=== PATIENT | male | born 2000 | race Caucasian/White ===

== ENCOUNTER 2025-01-03 14:13 | Emergency (ER) | payer OTHER, SELFPAY ==
--- NOTE | 2025-01-03 14:24 | ED_ITS ---
HPI - Headache General Chief Complaint: Headache Stated Complaint: shoulder pain/headaches Time Seen by Provider: 01/03/25 14:24 Source: patient Mode of arrival: ambulatory Limitations: no limitations History of Present Illness HPI Narrative: Travon is a 24-year-old male patient presenting to the clinic today with complaints of headache and shoulder pain. 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 States he switch to a backpack and started to have pain on the right side as well. Also reporting some muscle soreness to the posterior shoulders. Headache started over the last 1-2 days and felt some soreness in his bilateral jaws also radiating up into his ear. Denies any chest pain, shortness of breath, dizziness, or visual changes. History of elevated blood pressure without diagnosis of hypertension. BP was 166/102 in the clinic today. Has not been able to follow-up with his primary care doctor to have his blood pressure evaluated.Rates shoulder pain 3/10 and headache 5/10. Took tylenol for his symptoms. Related Data Allergies Allergy/AdvReac Type Severity Reaction Status Date / Time No Known Allergies Allergy Verified 01/03/25 14:26 Review of Systems Review of Systems: Pertinent positives per HPI. Patient denies any fever, chills, rash, visual changes, dizziness, cough, runny nose, sore throat, shortness of breath, chest pain, palpitations, nausea, vomiting, diarrhea, constipation, abdominal pain, or any urinary issues. PMFSH Comments At the time of my signature, I reviewed and agree with the nursing past medical, surgical, social, and family history. There is no relevant family history pertinent to the patient complaint. Exam Narrative: General: Well-developed, obese, in no apparent distress Head: Normocephalic, atraumatic Eyes: Pupils equally round and reactive to light bilaterally, EOM intact, sclera and conjunctive clear, no discharge, lids normal Ears: TMs intact and clear, ear canals clear, no drainage, grossly hearing normal. Nose: Nares patent, no discharge, no inflammation, no sinus tenderness. Mouth: Oropharynx without lesions or masses, good dentition, MMM. Tongue midline, even rise and fall of uvula Neck: Supple, trachea midline, no enlargement of anterior or posterior cervical nodes, no thyroid masses or goiter palpable. Cardio: Regular rate and rhythm, s1 and s2 normal, no murmur appreciated. Resp: Clear to auscultation bilaterally anteriorly and posteriorly, no rhonchi, rales, wheezing or rubs Musculoskeletal: No deformity, tender to palpation over the anterior shoulder and posterior shoulder, negative empty can and full can testing, grossly normal range of motion, muscle strength strong and equal, peripheral pulse strong, no edema, no cyanosis, normal gait and station Neuro: Alert and oriented x4 with normal speech, no focal deficits, cranial nerves I through XII intact, muscle strength 5 out of 5, sensation intact bilaterally Course Course Emergency Course: Portions of this record may have been created with voice recognition software. Level of Care: Express Care Visit Vital Signs Vital signs: Vital Signs Temperature 36.9 C 01/03/25 14: Pulse Rate 100 01/03/25 14:26 Respiratory Rate 18 01/03/25 14:26 Blood Pressure 166/102 H 01/03/25 14:26 Pulse Oximetry 97 01/03/25 14:26 Oxygen Delivery Room Air 01/03/25 14:26 Temperature 36.9 C 01/03/25 14:26 Pulse Rate 100 01/03/25 14:26 Respiratory Rate 18 01/03/25 14:26 Blood Pressure 166/102 H 01/03/25 14:26 Pulse Oximetry 97 01/03/25 14:26 Oxygen Delivery Room Air 01/03/25 14:26 Vital signs reviewed MDM - Headache MDM Narrative Medical decision making narrative: At the time of visit patient is resting comfortably on the exam table. Patient appears to be nontoxic. Plan: Patient denies any C/P, SOB, visual changes, or dizziness. Elevated b/p in the clinic- Patient to follow up with his PCP. Headache vascular vs tension. Shoulder pain likely tension. Will send in Rx for naproxen and muscle relaxer. Supportive measures were discussed with the patient and they voiced understanding discharge instructions and agrees to treatment plan. Return precautions reviewed Differential Diagnosis Differential diagnosis: Likely migraine, tension headache, headache and other (vascular headache, muscle tension, HTN, CAD,Anxiety) Discharge Plan Discharge Clinical Impression: Elevated blood pressure reading in office without diagnosis of hypertension, Acute pain of both shoulders Acute headache Qualifiers: Headache type: tension-type Intractability: not intractable Qualified Code(s): G44.209 - Tension-type headache, unspecified, not intractable Patient Disposition: Home, Self-Care Condition: Stable Instructions: Antibiotic Form, Acute Headache (ED), Hypertension (ED), Shoulder Pain (ED) Additional Instructions: Take any prescription medication only as prescribed-naproxen and cyclobenzaprine Be mindful of sedation precautions given to you if taking a muscle relaxer. May use heat or ice to the affected area May use blue emu, lidocaine patches, or asper cream to affected area- do not apply heat or ice directly over cream- can cause burn. Follow up with your PCP in 3-5 days if symptom persist. You have an elevated blood pressure in the clinic today and I recommend follow- up with primary care physician to have this reevaluated within the next week if symptoms persist. [place] [employer] guidelines state that normal blood pressure is 120/80 or less. Anything over 120/80 is considered elevated and should be monitored. You may need to decrease you salt intake and eat a heart healthy diet to help lower you blood pressure, other treatments would include decreasing stress, weight loss, stop caffeine, and quit smoking. Your primary care provider can determine whether you need to start antihypertensive medications. Untreated high blood pressure can cause dizziness, headaches, visual changes, blindness, kidney failure, stroke, heart attack, and male impotence. Patient Language: Setswana Prescriptions: New naproxen 500 mg tablet 500 mg PO BID PRN (Reason: pain) 7 Days Qty: 14 0RF cyclobenzaprine 10 mg tablet 10 mg PO Q8H PRN (Reason: muscle spasm) 7 Days Qty: 21 0RF Follow-up/Referrals: Ambrose,Christi Junior MD [Primary Care Provider] - Time of Disposition: 14:37 Quality NIHSS Nursing Documentation ED NIHSS nursing documentation: reviewed/agree
[2025-01-03 14:26] VITALS: BP 166/102; PULSE 100; RESP 18; TEMP 36.9; O2SAT 97
--- OUTSIDE RECORDS SUMMARY | 2025-01-03 16:33 | XMS_ITS | Encounter Summary ---
Author Organization [facility] Address [facility] [place] [address] Care Team Providers Care Temple Meat Cutter Name Role Phone Christi Boggs MD Primary Care Provider + Encounter Details Date Type Department Care Team (Late st Contact Info) Description 01/03/2025 Effector Therapeuticst Message Enc [facility] Family Medicine - [place] [address] [place] [address] [phone] Christi Boggs MD [address] [place] [address] Blood Pressure Social History Tobacco Use Types Packs/Day Years Used Date Smoking Tobacco: Never Passive Smoke Exposure: Never Smokeless Tobacco: Never Alcohol Use Standard Drinks/Week Comments Not Currently 0 (1 standard drink = 0.6 oz pure alcohol) I have drank alcohol on very rare occasions. 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 Not on file Not on file documented as of this encounter Plan of Treatment Upcoming Encounters Date Type Department Care Team (Latest Contact Info) Description 01/20/2025 8:00 AM CDT Hospital Encounter [facility] [address] [place] [address] [place] [address] [address] 01/20/2025 8:00 AM CDT - 01/20/2025 10:18 AM CDT Surgery [facility] [address] [place] [address] [place] [address] [facility] [address] [place] [address] EXCISION LIPOMA Back times 5 Scheduled Procedures Name Priority Associated Diagnoses Date/Ti me EXCISION LIPOMA Multiple lipomas 01/20/2025 8:00 AM CDT EXCISION LIPOMA Multiple lipomas 01/20/2025 8:00 AM CDT EXCISION LESION ARM/LEG Multiple lipomas 01/20/2025 8:00 AM CDT EXCISION LIPOMA Multiple lipomas 01/20/2025 8:00 AM CDT documented as of this encounter Visit Diagnoses Not on filedocumented in this encounter Care Teams Temple Meat Cutter Relationship Specialty Start Date End Date Christi Boggs MD [address] [place] [address] PCP - General FAMILY PRACTICE 11/22/24 documented as of this encounter
--- OUTSIDE RECORDS SUMMARY | 2025-01-03 16:33 | XMS_ITS | Clinical Summary ---
Author Organization [facility] Address [facility] [place] [address] Care Team Providers Care Clay Press Operator Name Role Phone Christi Boggs MD Primary Care Provider + Allergies No known active allergies Medications No known medications Active Problems Problem Noted Date Diagnosed Date Multiple lipomas 12/10/2024 Encounters Date Type Department Care Team Description 01/03/2025 Webbynodet Message Enc [address] [phone] Christi Boggs MD Blood Pressure 12/13/2024 11:00 AM EDM OPERATOR Allied Health/Nurse Visit [address] [phone] Christi Boggs MD Blood Pressure (Patient presents for a blood pressure check.) 12/13/2024 Travel 12/10/2024 Prep for Procedure [address], [address] [address] Bk Brown MD 12/10/[address], [address] [place] [address] Bk Brown MD Prior Authorization (No prior authorization needed for procedure on 01/20/2025. Authorization #: [id number]) 12/09/2024 4:00 PM EDM OPERATOR Office Visit [address], [address] [place] [phone] Bk Brown MD Mass (Back, right above pelvic bone, right side, left arm) 12/09/2024 Travel 11/22/2024 7:50 AM EDM OPERATOR Office Visit [facility] Family Medicine - [place] [address] [place] [address] Christi Boggs MD New Patient (Here to get established. Having some lumps on his body. Onset- about 1 yr. ) 11/22/2024 Travel from Last 3 Months Immunizations Name Administration Dates Next Due MODERNA COVID-19 (12+) MRNA, LNP-S, PF, 100 MCG/ 0.5 ML DOSE 11/14/2021,03/27/2021,02/16/2021 Meningococcal (Menactra) 02/03/2017 Tdap (Generic) 04/02/2022 Family History Medical History Relation Comments No Known Problems Brother Hypertension Father Diabetes Maternal Grandfather Type 2 Diabetes Maternal Grandmother type 2 Alcohol Abuse Maternal Uncle Diabetes Mother type 2 Diabetes Paternal Grandmother type 2 No Known Problems Sister Relation Status Comments Brother Alive Father Alive Maternal Grandfather Maternal Grandmother Maternal Uncle Mother Alive Paternal Grandmother Sister Alive Social History Tobacco Use Types Packs/Day Years Used Date Smoking Tobacco: Never Passive Smoke Exposure: Never Smokeless Tobacco: Never Tobacco Cessation:Counseling Given: No Alcohol Use Standard Drinks/Week Comments Not Currently 0 (1 standard drink = 0.6 oz pure alcohol) I have drank alcohol on very rare occasions. 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 Not on file Last Filed Vital Signs Vital Sign Reading Time Taken Comments Blood Pressure 134/86 12/13/2024 11:14 AM EDM OPERATOR Pulse 96 12/13/2024 11:03 AM EDM OPERATOR Temperature 36.8 C (98.2 F) 12/13/2024 11:03 AM EDM OPERATOR Respiratory Rate 18 12/13/2024 11:03 AM EDM OPERATOR Oxygen Saturation 98% 12/13/2024 11:03 AM EDM OPERATOR Inhaled Oxygen Concentration - - Weight 108 kg (238 lb) 12/09/2024 3:57 PM EDM OPERATOR Height 172.7 cm (5' 8 ) 12/09/2024 3:57 PM EDM OPERATOR Body Mass Index 36.19 12/09/2024 3:57 PM EDM OPERATOR Plan of Treatment Upcoming Encounters Date Type Department Care Team (Latest Contact Info) Description 01/20/2025 8:00 AM CDT Hospital Encounter [facility] [address] [place] [address] [place] [address] [address] 01/20/2025 8:00 AM CDT - 01/20/2025 10:18 AM CDT Surgery [facility] [address] [place], [place] [id number] [place] [address] [address] EXCISION LIPOMA Back times 5 Scheduled Procedures Name Priority Associated Diagnoses Date/Ti me EXCISION LIPOMA Multiple lipomas 01/20/2025 8:00 AM CDT EXCISION LIPOMA Multiple lipomas 01/20/2025 8:00 AM CDT EXCISION LESION ARM/LEG Multiple lipomas 01/20/2025 8:00 AM CDT EXCISION LIPOMA Multiple lipomas 01/20/2025 8:00 AM CDT Health Maintenance Due Date Last Done Comments HPV Vaccines (1 - Male 3-dos e series) 01/07/2015 Hepatitis C 01/07/2018 Hepatitis B Vaccines (1 of 3 - 19+ 3-dose series) 01/07/2019 COVID-19 Vaccine ( - 2023-2 5 season) 2024 11/14/2021, 03/27/2021, 02/16/2021 Influenza Adult (#1) 2024 Annual Physical 11/22/2025 11/22/2024 DTaP, Tdap and Td Vaccines ( 2 - Td or Tdap) 04/02/2032 04/02/2022 Meningococcal Vaccine Completed 02/03/2017 PHQ-2 (Physician [place]) Completed 11/22/2024 Meningococcal B Vaccine Aged Out No l onger eligible based on patient's age to complete this topic Pneumococcal Vaccine: Pediatrics (0 to 5 Years) and At-Risk Patients (6 to 64 Years) Aged Out No longer eligible b ased on patient's age to complete this topic RSV Immunizations Under 20 Months Aged Out No longer eligible b ased on patient's age to complete this topic Procedures Procedure Name Priority Date/Time Associated Diagnosis Comments COLLECTION VENOUS BLOOD VENIPUNCTURE Routine 11/22/2024 8:38 AM EDM OPERATOR Routine general medical examination at a [facility] care facility HEMOGLOBIN, GLYCOSYLATED Routine 11/22/2024 8:38 AM EDM OPERATOR Routine general medical examination at [facility] care facility LIPID PANEL Routine 11/22/2024 8:38 AM EDM OPERATOR Routine general medical examination at [facility] facility BASIC METABOLIC PANEL Routine 11/22/2024 8:38 AM EDM OPERATOR Routine general medical examination at a [facility] care facility from Last 3 Months Results * (ABNORMAL) HEMOGLOBIN, GLYCOSYLATED (11/22/2024 8:38 AM EDM OPERATOR) [facility] HGB A1C 5.4 4.5 - 6.2 % 11/22/2024 4:11 PM EDM OPERATOR [facility] ESTIMATED AVG GLUCOSE 108(H) 74 - 106 MG/DL 11/22/2024 4:11 PM EDM OPERATOR [facility] 11/22/2024 8:3 8 AM EDM OPERATOR us Christi Boggs MD LABORATORY Final [facility] [address] [place] [address], [place] [phone] * BASIC METABOLIC PANEL (11/22/2024 8:38 AM EDM OPERATOR) [facility] SODIUM S/P/B 143 136 - 145 MMOL/L 11/22/2024 3:00 PM [facility] POTASSIUM S/P/B 3.9 3.5 - 5.1 MMOL/L 11/22/2024 3:00 PM [facility] CHLORIDE S/P/B 104 98 - 107 MMOL/L 11/22/2024 3:00 PM [facility] CO2 29.3 21 - 32 MMOL/L 11/22/2024 3:01 PM [facility] GLUCOSE 97 70 - 99 MG/DL 11/22/2024 3:01 PM [facility] BUN 10 7 - 18 MG/DL 11/22/2024 3:01 PM [facility] CREATININE S/P/B 1.02 0.70 - 1.30 MG/DL 11/22/2024 3:01 PM [facility] CALCIUM S/P/B 8.6 8.4 - 10.5 MG/DL 11/22/2024 3:01 PM [facility] ANION GAP 9.7 5 - 15 MMOL/L 11/22/2024 3:01 PM [facility] Comment:REFERENCE RANGE NOT ESTABLISHED OSMOLALITY (CALC) 295 MOSM/KG 025 3:01 PM [facility] Comment:REFERENCE RANGE NOT ESTABLISHED GFR ESTIMATE >90 >90 ML/MIN/1. 73 M2 11/22/2024 3:01 PM [facility] GFR NOTES GFR REFERENCE S: 11/22/2024 3:01 PM [facility] Comment: THE ESTIMATED GFR IS CALCULATED USING THE 2020 CKD-EPI EQUATION. THE FOLLOWING CATEGORIES FOR GRADING RENAL FUNCTION ARE RECOMMENDED BY THE INTERNATIONAL SOCIETY OF NEPHROLOGY (KDIGO 2012 CLINICAL PRACTICE GUIDELINE). G1,NORMAL OR HIGH: >89 ml/min/1.73 m2 G2,MILDLY DECREASED: 60-89 ml/min/1.73 m2 G3A,MILDLY TO MODERATELY DECREASED: 45-59 ml/min/1.73 m2 G3B,MODERATELY TO SEVERELY DECREASED: 30-44 ml/min/1.73 m2 G4,SEVERELY DECREASED: 15-29 ml/min/1.73 m2 G5,KIDNEY FAILURE: <15 ml/min/1.73 m2 11/22/2024 8:38 AM EDM OPERATOR Christi Boggs MD LABORATORY Final Re sult [facility] [address] [place] [address], * (ABNORMAL) LIPID PANEL (11/22/2024 8:38 AM EDM OPERATOR) CHOLESTEROL 162 <200 MG/DL 11/22/2024 3:01 PM [facility] TRIGLYCERIDES 87 <150 MG/DL 11/22/2024 3:01 PM [facility] HDL 43 >40 MG/DL 11/22/2024 3:01 PM [facility] LDL-C 102(H) <100 MG/DL 11/22/2024 3:01 PM [facility] VLDL CALCULATION 17 5 - 28 MG/DL 11/22/2024 3:01 PM [facility] CHOL/HDL RATIO 3.8 0.0 - 4.0 11/22/2024 3:01 PM [facility] LDL/HDL 2.4(H) 0.41 - 2.13 11/22/2024 3:01 PM [facility] NON HDL CHOLESTEROL 119 <140 MG/DL 11/22/2024 3:01 PM [facility] 11/22/2024 8:38 AM EDM OPERATOR Christi Boggs MD LABORATORY Final Re sult [facility] [address] [place] [address], from Last 3 Months Insurance [facility] Care Teams Clay Press Operator Relationship Specialty Start Date End Date Christi Boggs MD [address] [place] [phone] PCP - General FAMILY PRACTICE 11/22/24
== END 2025-01-03 14:41 | disposition home or self-care (01) ==
PROVIDERS: Emergency Provider Nurse Practitioner Family; PCP Student in an Organized Health Care Education/Training Program
DX: R03.0 Elevated blood-pressure reading, without diagnosis of hypertension (principal); M25.512 Pain in left shoulder; M25.511 Pain in right shoulder; G44.209 Tension-type headache, unspecified, not intractable
CPT/HCPCS: 99203; G0463